=== PATIENT | female | born 1995 | race African-American/Black ===

== ENCOUNTER 2017-05-24 18:48 | Emergency (ER) | payer BC ==
[~2017-05-24] VITALS: Ht 160 cm; Wt 59.0 kg
[2017-05-24 19:07] VITALS: BP 117/75
== END 2017-05-24 19:26 | disposition home or self-care (01) ==
LOC: ER 19:01
DX: M26.602 Left temporomandibular joint disorder, unspecified (principal); J45.909 Unspecified asthma, uncomplicated
CPT/HCPCS: 99283; A4606; Z7610